=== PATIENT | female | born 1975 | race Caucasian/White ===

== ENCOUNTER 2018-09-24 18:54 | Emergency (ER) | payer BC ==
[~2018-09-24] VITALS: Ht 162.6 cm; Wt 130.6 kg
[2018-09-24 19:04] VITALS: BP_SYST 130
[2018-09-24 21:25] LABS: BILIRUBIN,URINE NEGATIVE (NEGATIVE); BLOOD, URINE 1+ (NEGATIVE); CLARITY/URINE CLEAR (CLEAR); COLOR,URINE YELLOW (YELLOW); GLUCOSE,URINE NEGATIVE (NEGATIVE); KETONES,URINE TRACE (NEGATIVE); LEUKOCYTE ESTERASE ,URINE NEGATIVE (NEGATIVE); NITRITE, URINE NEGATIVE (NEGATIVE); PH,URINE 6.5 (5.0-8.0); PROTEIN URINE NEGATIVE (NEGATIVE)
[2018-09-24 21:31] LABS: BACTERIA,URINE FEW /HPF (None Seen); MUCUS,URINE None Seen /LPF (None Seen); RBC,URINE 0-3 /HPF (0-3); WBC,URINE NONE SEEN /HPF (0-3)
[2018-09-24] MEDS ORDERED: KETOROLAC TROMETHAMINE 30 MG VIAL IM ONE (22:00)
[2018-09-24 23:25] VITALS: BP_SYST 120
== END 2018-09-24 23:25 | disposition home or self-care (01) ==
LOC: SED 18:54
DX: R10.84 Generalized abdominal pain (principal); E66.01 Morbid (severe) obesity due to excess calories; Z68.42 Body mass index [BMI] 45.0-49.9, adult
CPT/HCPCS: 76830; 76857; 81000; 81025; 96372; 99284; J1885

== ENCOUNTER 2019-11-11 09:08 | Inpatient (IN) | payer BC ==
[~2019-11-11] VITALS: Ht 162.6 cm; Wt 128.8 kg
[2019-11-11 10:32] LABS: HCG,QUAL RESULT NEGATIVE (NEGATIVE)
[2019-11-11] MEDS ORDERED: PROPOFOL 200MG/ 20ML VIAL (DIPRIVAN) IV ONE (10:55)
[2019-11-11] MEDS ORDERED: MIDAZOLAM HCL 5 MG/5 ML VIAL IVP ONE (10:55)
[2019-11-11] MEDS ORDERED: LR 1,000 ML IV.SOLN IV ONE (10:55)
[2019-11-11] MEDS ORDERED: SEVOFLURANE 15 MIN GAS INH ONE (10:55)
[2019-11-11] MEDS ORDERED: DEXAMETHASONE SOD PHOSPHATE 4 MG/ML VIAL IVP ONE (10:55)
[2019-11-11] MEDS ORDERED: BACITRACIN ZINC 15 GM TOPICAL OINTMENT TP ONE (10:55)
[2019-11-11] MEDS ORDERED: fentaNYL CITRATE/PF 100 MCG/2 ML AMP IVP ONE (10:55)
[2019-11-11] MEDS ORDERED: ROCURONIUM BROMIDE 10 MG/ML (ZEMURON) IV ONE (10:55)
[2019-11-11] MEDS ORDERED: BUPIVACAINE /EPINEPHRINE/PF 0.25% 30 ML VIAL INJ ONE (10:55)
[2019-11-11] MEDS ORDERED: NS IRRIG SOLN 1000 ML IR ONE (10:55)
[2019-11-11] MEDS ORDERED: ONDANSETRON HCL 4 MG/2 ML VIAL IVP ONE (10:55)
[2019-11-11] MEDS ORDERED: ONDANSETRON HCL 4 MG/2 ML VIAL IVP PRN (12:00)
[2019-11-11] MEDS ORDERED: fentaNYL CITRATE/PF 100 MCG/2 ML AMP IVP PRN ×2 (12:00)
[2019-11-11] MEDS: fentaNYL CITRATE/PF 100 MCG/2 ML AMP ONE ×2 (12:45→13:25)
[2019-11-11] MEDS ORDERED: METOCLOPRAMIDE HCL 10 MG/2 ML VIAL IVP ONE (13:00)
[2019-11-11] MEDS ORDERED: METOCLOPRAMIDE HCL 10 MG/2 ML VIAL ONE (13:11)
[2019-11-11 14:00] VITALS: BP_SYST 104
[2019-11-11] MEDS ORDERED: ALBMDI INH (14:00)
[2019-11-11] MEDS ORDERED: RUXO10TA PO (14:00)
[2019-11-11] MEDS ORDERED: AMOX250S74 PO (14:18)
[2019-11-11] MEDS ORDERED: HYDR-4272 PO ×2 (14:20→14:21)
[2019-11-11] MEDS ORDERED: ACET-2634 PO (14:22)
[2019-11-11] MEDS: HYDROcodone/ACETAMIN 5-325 MG TAB (NORCO/ VICODIN) PO PRN ×2 (14:23→18:40)
[2019-11-11] MEDS: 0.45% NACL 1,000 ML IV SCH (14:31)
[2019-11-11 14:36] VITALS: BP_SYST 104
--- NOTE | 2019-11-11 14:50 | NUR ---
ADMISSION NOTES: RECEIVED PT FROM [facility] , PT IS AAOX4, D./O OF BILAT EAR PAIN, PT ADMITTED UNDER DR MEJIA FOR S/P TONSILLECTOMY AND ADENOIDECOTMY. PT EDUCATED ON THE USE OF CALL LIGHT, TV AND BED, CONTROLS, DISCUSSED WITH PT AND FAMILY THE PLAN OF CARE. PT VERBALIZED UNDERSTANDING.
[2019-11-11] MEDS ORDERED: ACETAMINOPHEN 500 MG TABLET PO PRN (18:30)
--- NOTE | 2019-11-11 19:00 | NUR ---
PT STABLE, GIVEN PAIN MEDS WITH GOOD PAIN RELIEF. PT GIVEN FULL LIQUID DIET, TOLERATED WELL.
--- NOTE | 2019-11-11 19:20 | NUR ---
PT ENDORSED TO NIGHT KENYA, PT ON STABLE CONDITION.
--- NOTE | 2019-11-11 19:30 | NUR ---
Opening note Received patient awake, resting in bed, no s/sx of distress. IVF infusing via IV to LAC and she has SCD's. Bed is locked in lowest position, side rails up 3x, and instructed on use of call light. Updated board and reviewed plan of care.
[2019-11-11 20:00] VITALS: BP_SYST 121
[2019-11-11 20:42] VITALS: BP_SYST 115
--- NOTE | 2019-11-11 21:15 | NUR ---
OOB restroom Patient was assisted out of bed for use of restroom. She returned to bed, SCD's on and call light w/in reach. IVF infusing well.
[2019-11-11] MEDS: MORPHINE 2 MG/ML INJ. SYRINGE IVP PRN (22:50)
[2019-11-11 22:57] VITALS: BP_SYST 122
--- NOTE | 2019-11-11 22:58 | NUR ---
c/o pain Patient reporting severe pain to neck/jaw. Morphine IVP administered for severe pain as ordered. She requested ice chips and they were provided. Call light w/ in reach. Will continue to monitor.
[2019-11-11] MEDS: AMOXICILLIN 250 MG/5 ML, 150 ML BTL PO SCH (23:54)
--- NOTE | 2019-11-11 23:59 | NUR ---
Antibiotic Amoxicillin antibiotic given. Educated on side effects and she verbalized understanding. Antibiotic was not in med room and house sup was unable to bring it earlier, it was not in night locker and she was able to obtain from ER.
--- NOTE | 2019-11-12 01:10 | NUR ---
RN rounds Patient is awake, no distress, no SOB. Ice pack on neck was replaced with new one. IVF infusing as ordered. She reports she is comfortable and has no further needs.
[2019-11-12] MEDS: HYDROcodone/ACETAMIN 5-325 MG TAB (NORCO/ VICODIN) PO PRN ×3 (02:48→18:59)
[2019-11-12] MEDS: 0.45% NACL 1,000 ML IV SCH ×2 (02:49→13:51)
[2019-11-12] MEDS: ALBUTEROL SULFATE 0.083% 2.5 MG/3 ML VIAL.NEB INH PRN ×2 (02:52→15:48)
--- NOTE | 2019-11-12 02:52 | NUR ---
c/o pain / IVF reporting moderate pain to neck / jaw. Administered [place] 2 tabs for moderate pain as ordered. IVF bag empty, replace with new bag and infusing as ordered as 80 ml/hr.
--- NOTE | 2019-11-12 02:54 | NUR ---
breathing tx Patient reporting right chest tightness, she said at home uses inhaler for relief d/t asthma. I let her know she has breathing treatments and she agreed to receive treatment. RT providing breathing treatment.
--- NOTE | 2019-11-12 04:42 | NUR ---
Resting Patient is resting w/ eyes closed. Symmetrical rise and fall of chest, nonlabored breathing. Safety precautions in place and call light w/in reach.
[2019-11-12] MEDS: MORPHINE 2 MG/ML INJ. SYRINGE IVP PRN ×2 (06:10→22:55)
--- NOTE | 2019-11-12 06:17 | NUR ---
Pain med Patient reporting mod to severe pain and administered morphine for severe pain. She ambulated to restroom returned to bed, safety precautions in place. Call light w/in reach.
[2019-11-12] MEDS: AMOXICILLIN 250 MG/5 ML, 150 ML BTL PO SCH ×3 (06:50→21:43)
--- NOTE | 2019-11-12 07:00 | NUR ---
closing note Due antibiotic given. Patient resting in comfortable position, nonlabored breathing, no s/sx of distress. IVF infusing via IV to RAC., Safety precautions in place. Needs met throughout shift, will endorse care to incoming nurse.
[2019-11-12 07:28] LABS: BASOPHILS # (AUTO) 0.1 K/uL (0.0-0.2); BASOPHILS % (AUTO) 0.2 % (0.0-2.0); HEMATOCRIT 32.1 % (36-48); HEMOGLOBIN 10.3 g/dL (12.0-16.0); MEAN CORPUSCULAR HEMOGLOBIN 27 pg (27-31); MEAN CORPUSCULAR HGB CONC 32 % (32-36); MEAN CORPUSCULAR VOLUME 85 fL (79.0-98.0); MONOCYTES # (AUTO) 0.8 K/uL (0.0-1.0); MONOCYTES % (AUTO) 3.2 % (1.7-9.3); NEUTROPHILS # (AUTO) 21.7 K/uL (1.8-7.7); PLATELET COUNT (AUTO) 564 K/uL (130-430); RED BLOOD CELL COUNT(AUTO) 3.79 MIL/uL (4.2-6.2); WHITE BLOOD COUNT (AUTO) 24.5 K/uL (4.8-10.8)
[2019-11-12 07:42] LABS: CALCIUM 8.6 mg/dL (8.4-11.0); CREATININE 0.64 mg/dL (0.55-1.30); POTASSIUM 3.8 mmol/L (3.5-5.1)
[2019-11-12 08:00] VITALS: BP_SYST 98
--- NOTE | 2019-11-12 08:00 | NUR ---
Note Pt sitting up in bed - denies any severe pain in throat. Able to swallow and denies any difficulty at this time. Pt feels nauseous, refuses any nausea medication at this time. Pt able to ambulate to restroom with IV pole with steady gait. No SOB/resp distress or severe throat pain/discomfort at this time. IV in left AC intact and patent infusing IVF's well. Call light within reach.
[2019-11-12 10:37] LABS: NEUTROPHILS % (AUTO) 88.6 % (40.0-70.0)
[2019-11-12 11:32] VITALS: BP_SYST 94
--- NOTE | 2019-11-12 12:35 | NUR ---
Note Pt sitting on side of bed eating her Full liquids lunch tray at this time. Pt has visitor at bedside at this time. Denies any needs at this time. Call light within reach.
--- NOTE | 2019-11-12 13:24 | NUR ---
Dietitian Recommendations * Recommend continuing full liquid diet * Consider advance diet if/when medically appropriate LP, RD Please refer to Nutrition Assessment for details. Addendum: 11/12/19 at [address] Amended: Links added.
--- NOTE | 2019-11-12 15:30 | NUR ---
Note Pt was able to tolerate her Full liquids diet for lunch. Pt was seen and assessed by Dr Weinberg at bedside at this time. Dr Weinberg has saline locked IVF's as pt is taking sufficient fluids intake all shift. Pt denies any needs at this time. Call light within reach
--- NOTE | 2019-11-12 15:55 | NUR ---
CONSULT ONCOLOGY [facility] DR MORROW [phone] [place] [employer] [facility]
[2019-11-12 16:00] VITALS: BP_SYST 110
--- NOTE | 2019-11-12 18:25 | NUR ---
Note Pt has been ambulatory from bed to restroom with steady gait. No SOB/resp distress or severe pain/discomfort noted at this time. IV in left AC intact and patent. Tele unit attached and intact all shift. Pt was checked on q1' and PRN all shift for needs and care. No needs noted at this time. Call light within reach.
--- NOTE | 2019-11-12 19:15 | NUR ---
OPENING NOTE Bedside report received from dayshift nurse. Patient sitting up in bed, having a snack, AOx4, no s/s of acute distress noted. Breathing even and unlabored. Patient denies pain or discomfort at this time. IV site shows no signs of infiltration or infection noted. Call light with patient, patient demonstrated proper use. Will continue to monitor.
[2019-11-12 20:00] VITALS: BP_SYST 102
--- NOTE | 2019-11-12 21:00 | NUR ---
NEW IV Patient complained IV site is painful, removed at this time, catheter fully intact, no active bleeding noted. New IV inserted at left hand, 24 gauge, patient tolerated well. All needs met. Call light with patient. Will continue to monitor.
[2019-11-12] MEDS: ONDANSETRON HCL 4 MG/2 ML VIAL IVP PRN (21:43)
--- NOTE | 2019-11-12 22:55 | NUR ---
PAIN Patient complained of 8/10 pain, PRN medication administered. Will continue to monitor and reassess.
[2019-11-13] VITALS: BP_SYST 117
--- NOTE | 2019-11-13 01:00 | NUR ---
ROUNDS Patient in bed, sleeping comfortably. No signs of discomfort noted. Chest rise and fall even bilaterally. Call light with patient. Will continue to monitor.
[2019-11-13] MEDS: HYDROcodone/ACETAMIN 5-325 MG TAB (NORCO/ VICODIN) PO PRN ×3 (01:41→18:21)
--- NOTE | 2019-11-13 03:00 | NUR ---
ROUNDS Patient in bed sleeping. No s/s of acute distress noted. Breathing even and unlabored. Call light within reach. Bed alarm on. Will continue to monitor.
[2019-11-13 04:00] VITALS: BP_SYST 101
[2019-11-13] MEDS: ALBUTEROL SULFATE 0.083% 2.5 MG/3 ML VIAL.NEB INH PRN (04:26)
--- NOTE | 2019-11-13 05:00 | NUR ---
ROUNDS Patient in bed sleeping. No signs of discomfort noted. Chest rise and fall even bilaterally. Call light with patient. Will continue to monitor.
[2019-11-13] MEDS: AMOXICILLIN 250 MG/5 ML, 150 ML BTL PO SCH ×3 (05:40→22:14)
--- NOTE | 2019-11-13 06:14 | NUR ---
CLOSING NOTES Patient in bed sleeping at this time. No s/s of acute distress noted. Breathing even and unlabored. IV site patent, no signs of infiltration or infection noted. All needs met throughout shift. Fall and safety precautions maintained throughout shift. Will continue to monitor until patient care is endorsed to oncoming dayshift nurse.
[2019-11-13 07:38] LABS: BASOPHILS % (AUTO) 0.2 % (0.0-2.0); EOSINOPHILS # (AUTO) 0.1 K/uL (0.0-0.4); EOSINOPHILS % (AUTO) 0.4 % (0.0-4.0); HEMATOCRIT 31.6 % (36-48); HEMOGLOBIN 10.2 g/dL (12.0-16.0); LYMPHOCYTES # (AUTO) 3.2 K/uL (1.0-5.5); LYMPHOCYTES % (AUTO) 18.2 % (20.5-51.5); MEAN CORPUSCULAR HEMOGLOBIN 28 pg (27-31); MEAN CORPUSCULAR HGB CONC 32 % (32-36); MEAN CORPUSCULAR VOLUME 85 fL (79.0-98.0); MONOCYTES # (AUTO) 0.9 K/uL (0.0-1.0); NEUTROPHILS # (AUTO) 13.6 K/uL (1.8-7.7); NEUTROPHILS % (AUTO) 76.2 % (40.0-70.0); PLATELET COUNT (AUTO) 479 K/uL (130-430); RED CELL DISTRIBUTION WIDTH 15.3 % (9.0-15.0); WHITE BLOOD COUNT (AUTO) 17.8 K/uL (4.8-10.8)
[2019-11-13 07:55] LABS: ALBUMIN 3.2 g/dL (3.4-4.8); CALCIUM 8.5 mg/dL (8.4-11.0); CREATININE 0.6 mg/dL (0.55-1.30); POTASSIUM 3.5 mmol/L (3.5-5.1); TOTAL BILIRUBIN 0.4 mg/dL (0.0-1.0)
[2019-11-13 08:00] VITALS: BP_SYST 126
--- NOTE | 2019-11-13 08:00 | NUR ---
RN OPENING NOTE PATIENT IS RESTING IN BED, ALERT ORIENTED X4, PATIENT COMPLAINS OF PAIN IN HER THROAT OF 8/10 ON A 0/10 NUMERIC SCALE. . S/P HER TONSILLECTOMY OPERATION. PATIENT WAS ASSESSED. VITAL SIGNS ARE STABLE. PATIENT WAS GIVEN HER PAIN MEDICATION. BED AT LOW POSITION AND CALL LIGHT WITHIN REACH ,WILL CONTINUE TO MONITOR.
[2019-11-13] MEDS: MORPHINE 2 MG/ML INJ. SYRINGE IVP PRN ×2 (08:03→22:04)
[2019-11-13] MEDS: ONDANSETRON HCL 4 MG/2 ML VIAL IVP PRN ×2 (08:03→22:03)
--- NOTE | 2019-11-13 10:00 | NUR ---
RN NOTE PATIENT GOT HER MEDICATION, PATIENT WAS SERVED HER BREAKFAST. PATIENT IS NOW DENYING PAIN OR DISCOMFORT. WILL CONTINUE TO MONITOR.
--- NOTE | 2019-11-13 12:35 | NUR ---
RN NOTE PATIENT WAS SERVED HER LUNCH, PATIENT WAS COMPLAINING, OF PAIN IN HER THROAT OF 5/10 ON A 0/10 NUMERIC SCALE. PATIENT WAS GIVEN HER PRN NORCO TABLET, WILL CONTINUE TO MONITOR.
--- NOTE | 2019-11-13 14:30 | NUR ---
RN NOTE PATIENT SITTING ON THE BEDSIDE, IS BY BEDSIDE, PATIENT DENIES PAIN OR DISCOMFORT. BOTH AND PATIENT WAS EDUCATED ABOUT FALL PREVENTION AND HER DISEASE PROCESS AND THE SOFT DIET SHE NEED TO EAT AT HOME AFTER GETTING DISCHARGED FROM THE HOSPITAL. PATIENT VERBALIZED UNDERSTANDING.
[2019-11-13 16:00] VITALS: BP_SYST 120
--- NOTE | 2019-11-13 16:00 | NUR ---
RN NOTE PATIENT IS RESTING IN BED , BY BEDSIDE, NO ISSUE,
--- NOTE | 2019-11-13 18:45 | NUR ---
RN CLOSING NOTE PATIENT WAS SEEN BY DR. DORAN, PATIENT WAS SERVED HER DINNER, HAS A PAIN IN HER THROAT. PATIENT WAS GIVEN HER PRN P.O PAIN MEDICATION, WILL CONTINUE TO MONITOR AND WILL ENDORSE TO NEXT SHIFT.
--- NOTE | 2019-11-13 19:10 | NUR ---
OPENING NOTES Receive report from morning shift nurse. Patient sitting in bed, AOx4. No signs of respiratory distress noted. Verbalized mild pain in the throat at this time, able to tolerate. Call light within reach, patient educated to use call light when assistance is needed, patient verbalized understanding. Safety precautions in place. Bed locked and in lowest position. Refused bed alarm at this time. Patient educated on purpose and benefits of bed alarm, patient still refused. Will continue to monitor.
[2019-11-13 20:00] VITALS: BP_SYST 117
--- NOTE | 2019-11-13 22:14 | NUR ---
MED PASS Due medication given at this time. Patient educated for the purpose, side effects and benefits of medications that is taken, patient verbalized understanding. No signs of respiratory distress noted. Safety precautions in place, will continue to monitor patient.
--- NOTE | 2019-11-13 23:35 | NUR ---
RN ROUNDS Patient asleep at this time. No signs of respiratory distress and discomfort noted. Breathing even and unlabored. Safety precautions in place. Call light within reach. Will continue to monitor patient
[2019-11-14 01:35] VITALS: BP_SYST 128
[2019-11-14] MEDS: HYDROcodone/ACETAMIN 5-325 MG TAB (NORCO/ VICODIN) PO PRN ×3 (03:12→14:31)
[2019-11-14 04:08] VITALS: BP_SYST 125
[2019-11-14] MEDS: AMOXICILLIN 250 MG/5 ML, 150 ML BTL PO SCH ×2 (06:13→14:32)
[2019-11-14 06:40] LABS: BASOPHILS % (AUTO) 0.3 % (0.0-2.0); EOSINOPHILS # (AUTO) 0.3 K/uL (0.0-0.4); EOSINOPHILS % (AUTO) 1.8 % (0.0-4.0); HEMATOCRIT 32.4 % (36-48); HEMOGLOBIN 10.3 g/dL (12.0-16.0); LYMPHOCYTES # (AUTO) 2.3 K/uL (1.0-5.5); MEAN CORPUSCULAR HEMOGLOBIN 27 pg (27-31); MEAN CORPUSCULAR HGB CONC 32 % (32-36); MEAN CORPUSCULAR VOLUME 85 fL (79.0-98.0); MONOCYTES # (AUTO) 0.9 K/uL (0.0-1.0); MONOCYTES % (AUTO) 6.1 % (1.7-9.3); NEUTROPHILS # (AUTO) 11.8 K/uL (1.8-7.7); NEUTROPHILS % (AUTO) 76.8 % (40.0-70.0); PLATELET COUNT (AUTO) 494 K/uL (130-430); RED CELL DISTRIBUTION WIDTH 15.3 % (9.0-15.0); WHITE BLOOD COUNT (AUTO) 15.4 K/uL (4.8-10.8)
--- NOTE | 2019-11-14 06:53 | NUR ---
CLOSING NOTES Patient awake at this time, sitting in bed. No signs of respiratory distress noted. Verbalized moderate pain in the throat but able to tolerate it. Safety precautions in place. All needs met throughout the shift. Will continue to monitor until endorse to oncoming shift nurse for continuity if care.
[2019-11-14 07:55] VITALS: BP_SYST 126
--- NOTE | 2019-11-14 07:59 | NUR ---
Initial Notes: Patient is awake and oriented. Vital signs stable. Ambulatory. Denies any chest pain or shortness of breath. Complains of mild pain around the neck, radiating to the lower ears. Safety precautions observed. Call light within reach. Encouraged patient to call for assistance as needed.
[2019-11-14] MEDS: ONDANSETRON HCL 4 MG/2 ML VIAL IVP PRN (10:11)
--- NOTE | 2019-11-14 10:32 | NUR ---
Hematology consult called: for Dr. Hansen, regarding MPD, ordered by Dr. Weinberg, spoke with
--- NOTE | 2019-11-14 10:35 | NUR ---
Patient complained of nausea. Medication given as ordered. Pain is controlled at this time.
[2019-11-14 12:35] VITALS: BP_SYST 103
--- NOTE | 2019-11-14 13:00 | NUR ---
NOTES- In bed, tolerating full liquid diet. Pain is controlled.
[2019-11-14 14:14] VITALS: BP_SYST 103
--- NOTE | 2019-11-14 15:15 | NUR ---
Discharge D/C PT HOME ACCOMPANIED BY FAMILY MEMBER. PAIN IS CONTROLLED AT THIS TIME. AMBULATE WITH STEADY GAIT. NO SIGNS OF BLEEDING NOTED. DISCHARGE INSTRUCTIONS DISCUSSED WITH PATIENT. PT VERBALIZE UNDERSTANDING. PRESCRIPTION FOR NORCO AND ANTIBIOTICS WAS GIVEN BY MD AFTER SURGERY. NO COMPLAINTS. ARM BAND AND IVL REMOVED.
== END 2019-11-14 15:15 | disposition home or self-care (01) | DRG 133 ==
LOC: SDS 09:08 → SMU 09:09 → STU 14:56 → SMU 11-12 17:15 → SDS 11-12 20:03 → STU 11-12 22:57
PROVIDERS: ADMIT Otolaryngology; ATTEND Otolaryngology
PROC: 0CBQXZZ Excision of Adenoids, External Approach (ICD-10-PCS; 2019-11-11)
PROC: 0CBPXZZ Excision of Tonsils, External Approach (ICD-10-PCS; principal; 2019-11-11 11:30)
DX: J35.2 Hypertrophy of adenoids (principal); Z68.42 Body mass index [BMI] 45.0-49.9, adult; E66.01 Morbid (severe) obesity due to excess calories; D47.3 Essential (hemorrhagic) thrombocythemia; D72.829 Elevated white blood cell count, unspecified; J45.909 Unspecified asthma, uncomplicated; G47.33 Obstructive sleep apnea (adult) (pediatric); D63.8 Anemia in other chronic diseases classified elsewhere; Q35.7 Cleft uvula; Z79.2 Long term (current) use of antibiotics; Z79.899 Other long term (current) drug therapy
CPT/HCPCS: 36415; 80048; 80053; 84703; 85025; 88304; 94640; 94760; G0378; J1100; J2250; J2270; J2405; J2704; J2765; J3010; J3490; J7030; J7120; J7613